=== PATIENT | female | born 1965 | race Caucasian/White ===

== ENCOUNTER 2017-04-14 17:57 | Observation (INO) | payer BC ==
[2017-04-14 18:17] VITALS: BP 120/82; PULSE 81; RESP 18; TEMP 99.8; O2SAT 99
--- NOTE | 2017-04-14 18:44 | ED PDOC ---
HPI: Female Pain Time Seen by Provider: 04/14/17 18:26 Chief Complaint (Nursing): Abdominal Pain Chief Complaint (Provider): Pelvic pain History Per: Patient History/Exam Limitations: no limitations Onset/Duration Of Symptoms: Days (Today) Current Symptoms Are (Timing): Still Present Additional Complaint(s): Pt. with pelvic pain. Across lower. Started today. Also has a rash on left groin. Is itchy and mild pain. No dc. No weakness, dysuria, chest pain, dyspnea, fever. No vision changes. No back pain. Seen by obgyn yesterday and told her to start fluocinonide. Was suppose to get oral med but did not get it. This cream has helped her itching and pain. Is improving. Past Medical History Reviewed: Nursing Documentation, Vital Signs Vital Signs: Last Vital Signs Temp 99.8 F H 04/14/17 18:13 Pulse 81 04/14/17 18:13 Resp 18 04/14/17 18:13 BP 120/82 04/14/17 18:13 Pulse Ox 99 04/14/17 18:13 - Medical History PMH: Diabetes Other PMH: uti - Surgical History Surgical History: No Surg Hx - Family History Family History: States: Unknown Family Hx - Living Arrangements Living Arrangements: With Family - Social History Alcohol: None Drugs: Denies - Home Medications Home Medications: Ambulatory Orders Medication Instructions Recorded Nystatin/Triamcinolone 1 appl TP BID 7 Days tube 04/14/17 [Nystatin/Triamcinolone Cream] - Allergies Allergies/Adverse Reactions: Allergies Allergy/AdvReac Type Severity Reaction Status Date / Time Penicillins Allergy RASH Verified 04/14/17 18:13 Review of Systems ROS Statement: Except As Marked, All Systems Reviewed And Found Negative Genitourinary Female: Positive for: Pelvic Pain, Rash Physical Exam - Reviewed Nursing Documentation Reviewed: Yes Vital Signs Reviewed: Yes - Physical Exam Appears: Positive for: Non-toxic, No Acute Distress Head Exam: Positive for: ATRAUMATIC, NORMAL INSPECTION, NORMOCEPHALIC Skin: Positive for: Normal Color, Warm, DRY Eye Exam: Positive for: EOMI, Normal appearance, PERRL ENT: Positive for: Normal ENT Inspection Neck: Positive for: Normal, Painless ROM Cardiovascular/Chest: Positive for: Regular Rate, Rhythm Respiratory: Positive for: CNT, Normal Breath Sounds Gastrointestinal/Abdominal: Positive for: Bowel Sounds, Soft, Tenderness ( across lower pelvic mild; L groin with raised erythema and whitish dc in area, nontender, no induration) Back: Positive for: Normal Inspection. Negative for: L CVA Tenderness, R CVA Tenderness Extremity: Positive for: Normal ROM. Negative for: Tenderness, Pedal Edema Neurologic/Psych: Positive for: Alert, Oriented - ECG O2 Sat by Pulse Oximetry: 99 Pulse Ox Interpretation: Normal ED OBSERVATION Date of observation admission: 04/14/17 Time of observation admission: 18:46 - Observation admission statement Patient is being placed in observation because:: pelvic pain - Goals of Observation Goals of observation are:: pain eval - Progress Note Progress Note: 04/14/17 18:46 Dr. Garduno to take over care and fu. Disposition - Clinical Impression Clinical Impression: Candidiasis, Pelvic pain - Patient ED Disposition Is Patient to be Admitted: Transfer of Care Counseled Patient/Family Regarding: Diagnosis - Disposition Disposition: Transfer of Care Disposition Time: 18:46 Condition: STABLE Additional Instructions: Stop current cream fluocinonide and start fungal cream rx here. Prescriptions: Nystatin/Triamcinolone [Nystatin/Triamcinolone Cream] 1 appl TP BID 7 Days tube Instructions: Skin Yeast Infection (ED), Pelvic Pain in Women (ED)
[2017-04-14] MEDS ORDERED: Sodium Chloride 0.9% 500 ML IV STA (18:50)
--- NOTE | 2017-04-14 19:22 | ED PDOC ---
- Laboratory Results Result Diagrams: 04/14/17 19:20 04/14/17 19:20 - ECG O2 Sat by Pulse Oximetry: 99 Medical Decision Making Medical Decision Makin Patient signed out to me by Dr. Meza. Pending labs [id number] EXAM: US Pelvis Complete, Transabdominal FINDINGS: Uterus/cervix: The uterus is enlarged. Uterus measures approximately 13.4 x 5.6 x 5.1 cm. There is a 6.3 x 4.9 x 5.9 cm exophytic fibroid extending off the uterine fundus. Endometrium is not well demonstrated. Endometrium measures approximately 5 mm in width. Left ovary: Left ovary measures approximately 2.2 x 1.5 x 2.4 cm. There are multiple small follicles. There is intraovarian blood flow. Right ovary: Right ovary could not be identified Free fluid: There is no significant fluid. Bladder: Bladder is incompletely distended which limits evaluation. IMPRESSION: Large fibroid uterus; nonvisualization of the right ovary EXAM: US Pelvis, Transvaginal FINDINGS: Uterus/cervix: Maximal uterine length is difficult to obtain on transvaginal imaging. Endometrium measures 10.5 mm in width. Exophytic fundal fibroid measures approximately 6 x 6 x 6.6 cm. Right ovary: Right ovary measures approximately 2.47 x 1.2 x 2.3 cm. There are multiple small follicles. There is intraovarian blood flow. Left ovary: Left ovary was not identified on transvaginal imaging. Free fluid: There is no free fluid. Bladder: Not evaluated IMPRESSION: Fibroid uterus, no torsion -Patient was made aware of US findings and significance. She was scheduled follow up with Dr. Morales, welder helper, next week. Diagnosis: fibroids, pelvis pain, skin irritation. Scribe Attestation: Documented by Robby Meneses, acting as a scribe for Jeovanny Garduno MD Provider Scribe Attestation: All medical record entries made by the Scribe were at my direction and personally dictated by me. I have reviewed the chart and agree that the record accurately reflects my personal performance of the history, physical exam, medical decision making, and the department course for this patient. I have also personally directed, reviewed, and agree with the discharge instructions and disposition. Disposition - Clinical Impression Clinical Impression: Candidiasis, Pelvic pain, Fibroid - POA Present On Arrival: None - Disposition Disposition: Routine/Home Disposition Time: 22:45 Condition: STABLE
[2017-04-14 19:33] LABS: BASO # 0.2 K/uL (0.0-0.2); BASO % 1.5 % (0.0-2.0); EOS # 0.2 K/uL (0.0-0.7); EOS % 1.8 % (0.0-4.0); HEMATOCRIT 40.8 % (34.0-47.0); LYMPH % 32.4 % (20.0-40.0); MEAN CELL VOLUME 74.5 fl (81.0-99.0); MEAN CORPUSCULAR HEMOGLOBIN 23.6 pg (27.0-31.0); MEAN CORPUSCULAR HGB CONC 31.7 g/dL (33.0-37.0); MEAN PLATELET VOLUME 8.1 fl (7.2-11.7); MONO # 0.8 K/uL (0.0-0.8); MONO % 6.6 % (0.0-10.0); NEUT # 7.1 K/uL (1.8-7.0); NEUT % 57.7 % (50.0-75.0); NRBC % 0.2 % (0.0-0.0); RED CELL DISTRIBUTION WIDTH 18.5 % (11.5-14.5); WHITE BLOOD COUNT 12.2 K/uL (4.8-10.8)
[2017-04-14 19:54] LABS: BLOOD UREA NITROGEN 12 mg/dl (7-17); CALCIUM 9.3 mg/dL (8.4-10.2); CARBON DIOXIDE 25 mmol/L (22-30); CHLORIDE 105 mmol/L (98-107); GFR AFRICAN-AMERICAN > 60; GLUCOSE,RANDOM 110 mg/dL (65-105); POTASSIUM 4.2 MMOL/L (3.6-5.0); SODIUM 141 mmol/l (132-148)
--- NOTE | 2017-04-14 22:36 | US ---
EXAM: US Pelvis Complete, Transabdominal CLINICAL HISTORY: 52 years old, female; Pain; Pelvic pain TECHNIQUE: Real-time transabdominal pelvic ultrasound (complete) with image documentation. COMPARISON: There are no prior studies for comparison. FINDINGS: Uterus/cervix: The uterus is enlarged. Uterus measures approximately 13.4 x 5.6 x 5.1 cm. There is a 6.3 x 4.9 x 5.9 cm exophytic fibroid extending off the uterine fundus. Endometrium is not well demonstrated. Endometrium measures approximately 5 mm in width. Left ovary: Left ovary measures approximately 2.2 x 1.5 x 2.4 cm. There are multiple small follicles. There is intraovarian blood flow. Right ovary: Right ovary could not be identified Free fluid: There is no significant fluid. Bladder: Bladder is incompletely distended which limits evaluation. IMPRESSION: Large fibroid uterus; nonvisualization of the right ovary EXAM: US Pelvis, Transvaginal EXAM DATE/TIME: 04/14/2017 6:50 PM CLINICAL HISTORY: 52 years old, female; Pain; Pelvic pain TECHNIQUE: Real-time transvaginal pelvic ultrasound (complete) with image documentation. Transvaginal imaging was used for better evaluation of the endometrium and adnexa. COMPARISON: There are no prior studies for comparison. FINDINGS: Uterus/cervix: Maximal uterine length is difficult to obtain on transvaginal imaging. Endometrium measures 10.5 mm in width. Exophytic fundal fibroid measures approximately 6 x 6 x 6.6 cm. Right ovary: Right ovary measures approximately 2.47 x 1.2 x 2.3 cm. There are multiple small follicles. There is intraovarian blood flow. Left ovary: Left ovary was not identified on transvaginal imaging. Free fluid: There is no free fluid. Bladder: Not evaluated IMPRESSION: Fibroid uterus, no torsion
== END 2017-04-14 23:00 | disposition home or self-care (01) ==
LOC: H.ER 17:57 → H.EROBSV 18:40
PROVIDERS: ADMIT Emergency Medicine; ATTEND Emergency Medicine
DX: D25.9 Leiomyoma of uterus, unspecified (principal); B37.9 Candidiasis, unspecified; E11.9 Type 2 diabetes mellitus without complications; Z87.440 Personal history of urinary (tract) infections; R10.2 Pelvic and perineal pain; R21 Rash and other nonspecific skin eruption
CPT/HCPCS: 76830; 76856; 80048; 81025; 85025; 96361; 96374; 99282; G0378; J1885; J7040